=== PATIENT | female | born 1995 | race Caucasian/White ===

== ENCOUNTER 2016-11-06 16:21 | Inpatient (IN) | payer BC ==
[~2016-11-06] VITALS: Ht 167.6 cm; Wt 76.4 kg
[2016-11-20] MEDS ORDERED: PRENATAL1 TA7 PO (01:25)
[2016-11-20] MEDS ORDERED: MAGNESIUM ELEME30 MG PO (01:26)
[2016-11-20] MEDS ORDERED: OSCAL 500 TAB500 MG PO (01:26)
[2016-11-20] MEDS ORDERED: IRON325 M2 PO (01:26)
[2016-11-20] MEDS ORDERED: EPA FISH OIL1000 MG PO (01:27)
[2016-11-24] VITALS (26 sets, daily range): BP systolic 92–148; BP diastolic 53–79; PULSE 58–92; TEMP 97.2–98
[2016-11-24 09:06] LABS: BASO % 0.3 % (0.0-2.0); EOS # 0.1 (0.0-0.7); EOS % 0.9 % (0-4.0); GRAN # 5.2 (1.4-6.5); GRAN % 67.2 % (42.2-75.2); HEMOGLOBIN 12.3 g/dl (12.5-16.0); LYMPH # 1.8 (1.2-3.4); LYMPH % 23.6 % (20.0-51.0); MEAN CELL VOLUME 90 fl (80.0-100.0); MEAN CORPUSCULAR HEMOGLOBIN 32 pg (27.0-31.0); MEAN CORPUSCULAR HGB CONC 35 g/dl (33.0-37.0); MEAN PLATELET VOLUME 12.7 fl (7.4-10.4); MONO # 0.5 (0.1-0.6); PLATELET COUNT 101 K/mm3 (130-400); RED BLOOD COUNT 3.88 M/mm3 (4.10-5.30); REDCELL DISTRIBUTION WIDTH-CV 13.2 % (11.5-14.5); WHITE BLOOD COUNT 7.7 K/mm3 (4.8-10.8)
[2016-11-25 00:37] VITALS: BP 115/77; PULSE 77; TEMP 98.3
[2016-11-25 08:04] VITALS: BP 119/79; PULSE 78; TEMP 97.8
[2016-11-25] MEDS ORDERED: IBU800 M1 PO (11:38)
== END 2016-11-25 17:05 | disposition home or self-care (01) | DRG 775 ==
LOC: LDR 11-24 08:21 → OB 11-25 07:00 → EDSTATUS 11-26 08:18 → LDRO 11-26 16:21
PROVIDERS: Obstetrics & Gynecology
PROC: 10E0XZZ Delivery of Products of Conception, External Approach (ICD-10-PCS; principal; 2016-11-24)
PROC: 0HQ9XZZ Repair Perineum Skin, External Approach (ICD-10-PCS; 2016-11-24)
PROC: 3E033VJ Introduction of Other Hormone into Peripheral Vein, Percutaneous Approach (ICD-10-PCS; 2016-11-24)
DX: O48.0 Post-term pregnancy (principal); Z3A.40 40 weeks gestation of pregnancy; Z37.0 Single live birth
CPT/HCPCS: J2590; J7120

== ENCOUNTER 2016-11-20 00:43 | Outpatient (CLI) | payer BC ==
[~2016-11-20] VITALS: Ht 167.6 cm; Wt 76.4 kg
[2016-11-20 01:15] VITALS: BP 112/71; PULSE 89; TEMP 98.1
[2016-11-20] MEDS ORDERED: PRENATAL1 TA7 PO (01:25)
[2016-11-20] MEDS ORDERED: MAGNESIUM ELEME30 MG PO (01:26)
[2016-11-20] MEDS ORDERED: OSCAL 500 TAB500 MG PO (01:26)
[2016-11-20] MEDS ORDERED: IRON325 M2 PO (01:26)
[2016-11-20] MEDS ORDERED: EPA FISH OIL1000 MG PO (01:27)
== END 2016-11-20 03:10 | disposition home or self-care (01) ==
LOC: LDRO 00:43
DX: O62.9 Abnormality of forces of labor, unspecified (principal); Z3A.39 39 weeks gestation of pregnancy

== ENCOUNTER 2018-05-26 15:54 | Outpatient (CLI) | payer OTHER ==
[~2018-05-26] VITALS: Ht 167.6 cm; Wt 69.5 kg
[~2018-05-26 15:54] MED LIST: EPA FISH OIL1000 MG PO; IBU800 M1 PO; IRON325 M2 PO; MAGNESIUM ELEME30 MG PO; OSCAL 500 TAB500 MG PO; PRENATAL1 TA7 PO
[2018-05-26] MEDS ORDERED: DICLEGIS (16:29)
[2018-05-26 16:30] VITALS: BP 112/57; PULSE 69; TEMP 98
[2018-05-26 16:32] LABS: COLLECTION METHOD CLEAN CATCH
[2018-05-26 16:46] LABS: MUCOUS Present /lpf; PH 8 (5-8); SQUAMOUS EPITHELIAL 0-2 /hpf; URINE APPEARANCE Clear; URINE BACTERIA Rare /hpf; URINE BILIRUBIN Negative (NEGATIVE); URINE BLOOD 3+ (NEGATIVE); URINE COLOR Amber; URINE GLUCOSE Negative (NEGATIVE); URINE KETONE Negative (NEGATIVE); URINE LEUKOCYTE ESTERASE Negative (NEGATIVE); URINE NITRATE Negative (NEGATIVE); URINE PROTEIN(semi-quant) 1+ (NEGATIVE); URINE RBC 20-50 /hpf; URINE UROBILINOGEN Negative (NEGATIVE)
== END 2018-05-26 17:00 | disposition home or self-care (01) ==
LOC: LDRO 15:54 → LDR 16:15 → LDRO 17:00
PROVIDERS: Obstetrics & Gynecology
DX: O26.893 Other specified pregnancy related conditions, third trimester (principal); R31.9 Hematuria, unspecified; R25.2 Cramp and spasm; Z3A.28 28 weeks gestation of pregnancy
CPT/HCPCS: OP

== ENCOUNTER → 2018-06-18 | Outpatient (CLI) | payer OTHER ==
[~2018-06-18] MED LIST changes: +DICLEGIS
== END ==
LOC: SUN.DIA 06-15 16:48
DX: O24.419 Gestational diabetes mellitus in pregnancy, unspecified control (principal); Z3A.32 32 weeks gestation of pregnancy
CPT/HCPCS: G0108

== ENCOUNTER 2018-08-12 06:42 | Inpatient (IN) | payer OTHER ==
[~2018-08-12] VITALS: Ht 167.6 cm; Wt 76.4 kg
[2018-08-12] VITALS (44 sets, daily range): BP systolic 89–142; BP diastolic 51–81; PULSE 50–106; TEMP 97.7–98.7
--- NOTE | 2018-08-12 08:00 | NUR ---
Patient ambulatory to unit accompanied by spouse for scheduled pitocin induction of labor. Patient oriented to room and call light, gown on and resting in bed. Induction procedure reviewed. Patient states baby has been active, denies any vaginal bleeding or leaking of fluid. care and hx reviewed. Assessment completed. IV started in left wrist and labs collected from IV site. LR infusing without difficulty. Dr. Stanley at bedside and reviews FHR and contraction pattern. 0800: AROM with moderate amount of clear fluid noted. SVE by Dr. Stanley 1-/-3. Dr. Stanley states patient can have an epidural whenever she desires. Patients blood sugar checked using [facility] glucometer, 83 at 0815. Consents signed. Will continue with pitocin.
[2018-08-12] MEDS ORDERED: MAGNESIUM500 MG PO (08:08)
[2018-08-12] MEDS ORDERED: LEXAPRO 10MG10 MG PO (08:09)
[2018-08-12 08:41] LABS: BASO % 0.1 % (0.0-2.0); EOS # 0.1 (0.0-0.7); EOS % 0.9 % (0-4.0); GRAN # 4.4 (1.4-6.5); GRAN % 62.2 % (42.2-75.2); HEMOGLOBIN 11.6 g/dl (12.5-16.0); LYMPH % 28.8 % (20.0-51.0); MEAN CELL VOLUME 89 fl (80.0-100.0); MEAN CORPUSCULAR HEMOGLOBIN 30 pg (27.0-31.0); MEAN CORPUSCULAR HGB CONC 33 g/dl (33.0-37.0); MEAN PLATELET VOLUME 12.3 fl (7.4-10.4); MONO # 0.5 (0.1-0.6); MONO % 7.7 % (1.7-9.3); PLATELET COUNT 131 K/mm3 (130-400); RED BLOOD COUNT 3.93 M/mm3 (4.10-5.30); REDCELL DISTRIBUTION WIDTH-CV 12.3 % (11.5-14.5)
--- NOTE | 2018-08-12 09:00 | NUR ---
0900: Pitocin started at 2 mu/min per orders.
--- NOTE | 2018-08-12 09:43 | NUR ---
Patient requesting an epidural. SVE 1-2/50/-3 and light green tinged meconium fluid noted on peripad. Pads changed.
--- NOTE | 2018-08-12 09:58 | NUR ---
Tien Garcias CRNA notified of patient request for an epidural. In hopsital and on her way.
--- NOTE | 2018-08-12 10:08 | NUR ---
Patient off monitors and up to bathroom to void. Back to bed and sitting upright at side of bed for epidural placement. Tien Garcias CRNA in room and epidural procedure explained. Time out completed. 1019: Single shot given, no reaction to single shot. 1022: Epidural catheter placed and secured to patients back. 1027: Patient repositioned in bed, wedged left. See anesthesia records.
--- NOTE | 2018-08-12 14:05 | NUR ---
Patient breathing through contractions and states she is feeling contraction pain in her right lower abdominal area. Patient repositioned far right lateral and patient presses epidural bolus button. SVE /1. Will return to evaluate pain.
--- NOTE | 2018-08-12 14:30 | NUR ---
Tien Garcias CRNA called and report that patient still breathing through contractions and feeling pain on her right lower side. To room to dose epidural.
--- NOTE | 2018-08-12 15:12 | NUR ---
Patient states no relief from the epidural dose. Tien Garcias CRNA in room and will replace epidural catheter.
--- NOTE | 2018-08-12 15:15 | NUR ---
Patient repositioned to far right lateral. Tien Garcias CRNA at bedside to place epidural. 1522: Epidural catheter placed but falls out. 1526: Epidural catheter placed and secured to patients back. Epidural continuous pump infusing. See anesthesia records.
--- NOTE | 2018-08-12 16:00 | NUR ---
Patient comfortable with epidural but feeling pressure in her vagina. SVE 10//+2. Dr. Stanley called to hospital for delivery.
--- NOTE | 2018-08-12 16:15 | NUR ---
1610: Castillo catheter removed. 1612: Dr. Stanley in room for delivery. 1616: Patient pushes through one contraction and spontaneous vaginal delivery of infant head immediately followed by body. Infant nose and mouth suctioned by Dr. Stanley. Father of baby at bedside and cuts umbilical cord with assist from Dr. Stanley. placed skin to skin with mother where attended to by Alyse Mathias RN. Pitocin off after delivery of . 1618: Spontaneous and intact delivery of placenta. Fundus massaged, firm and down 2 from umbilicus. Second degree perineal laceration repaired. EBL 200ml. Patient repositioned in bed and ice pack on perineum. See labor and delivery summary, doctor dictation and anesthesia records.
--- NOTE | 2018-08-12 19:30 | NUR ---
1930 IV TO INT. EPID CATH REMOVED. UP TO BR WITH ASSIST AND VOIDED 800CC EASILY. PERICARE DONE. AMB TO 207 AND [facility].
[2018-08-13 08:35] VITALS: BP 113/79; PULSE 74; TEMP 97.6
--- NOTE | 2018-08-13 10:02 | NUR ---
Initial visit Patient thanked for offering congratulations for the of her son. thanked her for choosing [facility].
== END 2018-08-13 18:05 | disposition home or self-care (01) | DRG 807 ==
LOC: LDR 06:42 → OB 07:32
PROVIDERS: ADMIT Obstetrics & Gynecology
PROC: 10E0XZZ Delivery of Products of Conception, External Approach (ICD-10-PCS; principal; 2018-08-12)
PROC: 0KQM0ZZ Repair Perineum Muscle, Open Approach (ICD-10-PCS; 2018-08-12)
PROC: 10907ZC Drainage of Amniotic Fluid, Therapeutic from Products of Conception, Via Natural or Artificial Opening (ICD-10-PCS; 2018-08-12)
PROC: 3E033VJ Introduction of Other Hormone into Peripheral Vein, Percutaneous Approach (ICD-10-PCS; 2018-08-12)
DX: O24.420 Gestational diabetes mellitus in childbirth, diet controlled (principal); Z37.0 Single live birth; Z3A.39 39 weeks gestation of pregnancy; O70.1 Second degree perineal laceration during delivery; O77.0 Labor and delivery complicated by meconium in amniotic fluid; O99.344 Other mental disorders complicating childbirth; F41.8 Other specified anxiety disorders; Z87.891 Personal history of nicotine dependence
CPT/HCPCS: J2590; J2795; J7120

== ENCOUNTER 2021-01-19 08:11 | Outpatient (CLI) | payer OTHER ==
[~2021-01-19] VITALS: Ht 167.6 cm; Wt 82.7 kg
[~2021-01-19 08:11] MED LIST changes: +LEXAPRO 10MG10 MG PO; +MAGNESIUM500 MG PO
[2021-01-19 08:30] VITALS: BP 110/67; PULSE 90; TEMP 98.1
[2021-01-19 09:00] VITALS: BP 112/61; PULSE 80
--- NOTE | 2021-01-19 09:31 | NUR ---
0830 PATIENT HERE FOR VERSION. EFM ONN FHR 125 BABY VERY ACTIVE. ASSESSMENT COMPLETED. IV STARTED IN LEFT. TERB .[address] ORDER. NO CONTRACTIONS ON MONITOR OR FELT BY PATIENT.
[2021-01-19 09:39] VITALS: PULSE 78
--- NOTE | 2021-01-19 09:39 | NUR ---
[address] PABLO AT BEDSIDE. VERSION CONSENT SIGNED. US CONFIRM BREECH PRESENTATION BY DR MC. VERSION PROCEDURE PERFORMED BY DR MC AND SETH. ENCOURAGE PATIENT TO TAKE SLOW DEEP BREATHS THROUGH PROCEDURE. PATIENT AT BEDSIDE VERY SUPPORTIVE. VERSION SUCCESSFUL. US FOR VERTEX PLACEMENT CONFIRM.
--- NOTE | 2021-01-19 09:50 | NUR ---
0945 PATIENT RESTS IN BED. DENIES HAVING CONTRACTIONS OR PAIN.
== END 2021-01-19 10:14 | disposition home or self-care (01) ==
LOC: LDRO 08:11
DX: O32.8XX0 Maternal care for other malpresentation of fetus, not applicable or unspecified (principal); Z3A.36 36 weeks gestation of pregnancy
CPT/HCPCS: J3105

== ENCOUNTER 2021-01-23 21:54 | Outpatient (CLI) | payer OTHER ==
[~2021-01-23] VITALS: Ht 167.6 cm; Wt 81.8 kg
[2021-01-23 23:20] VITALS: BP 112/65; PULSE 93; TEMP 98
--- NOTE | 2021-01-24 00:31 | NUR ---
DR. LAURA NOTIFIED OF PATIENTS UNCHANGED CERVICAL EXAM AND REACTIVE STRIP. PATIENT WILL DISCHARGE HOME PER DR. LAURA'S ORDERS.
== END 2021-01-23 23:35 | disposition home or self-care (01) ==
LOC: LDRO 21:54 → LDR 22:19 → LDRO 23:35
DX: O62.9 Abnormality of forces of labor, unspecified (principal); Z3A.37 37 weeks gestation of pregnancy
CPT/HCPCS: OP

== ENCOUNTER 2021-01-26 20:26 | Outpatient (CLI) | payer OTHER ==
[~2021-01-26] VITALS: Ht 167.6 cm; Wt 82.7 kg
--- NOTE | 2021-01-26 20:40 | NUR ---
PT ARRIVES AMBULATORY TO UNIT WITH SPOUSE, C/O CONTRACTIONS Q4 MIN APART, PLACED ON TOCO/EFM WITH CATEGORY 1 STRIP UPON ASSESSMENT. DENIES LEAKING OF FLUID, AND REPORTS POSITIVE MOVEMENT. PT REPORTS HX OF "LONG LABORS" AND "I NEVER DILATE UNTIL I GET MY EPIDURAL." PT ALSO REPORTS BREECH PRESENTATION THIS WITH A SUCCESFUL VERSION ON 01/19/21. SVE 2/50/-2 UPON ARRIVAL, WILL REASSESS IN 1 HOUR TO MONITOR FOR CERVIAL CHANGE.
[2021-01-26 21:15] VITALS: BP 123/67; PULSE 97; TEMP 98.3
--- NOTE | 2021-01-26 22:22 | NUR ---
DISCHARGE INSTRUCTIONS REVIEWED AND UNDERSTOOD BY PATIENT. DENIES FURTHER QUESTIONS OF CONCERNS. AMBULATORY FROM UNIT WITH SPOUSE IN STABLE CONDITION.
== END 2021-01-26 22:22 ==
LOC: LDRO 20:26
DX: Z34.90 Encounter for supervision of normal pregnancy, unspecified, unspecified trimester (principal)

== ENCOUNTER 2021-01-31 16:25 | Outpatient (CLI) | payer OTHER ==
[~2021-01-31] VITALS: Ht 167.6 cm; Wt 82.7 kg
[2021-01-31 17:00] VITALS: BP 137/64; PULSE 115; TEMP 97.9
[2021-01-31 17:30] VITALS: PULSE 106
--- NOTE | 2021-01-31 18:20 | NUR ---
LABOR CHECK: 1630: PT. AMBULATORY TO L&D UNIT FOR C/O CTX Q2-3MIN APART. PT. ESCORTED TO LR4 AND CHANGED INTO GOWN. EFM/TOCO APPLIED AND VITAL SIGNS DONE. VITALS WNL (SEE REVIEW TAB) AND SVE 1-2/50/-3. ASSESSMENTS COMPLETED AND POC DISCUSSED. NO QUESTIONS AT THIS TIME.
--- NOTE | 2021-01-31 18:21 | NUR ---
DISCHARGE NOTE: 1814: PT. DRESSED AND SITTING ON BED. DISCUSSED DISCHARGE PAPERWORK AND NO QUESTIONS. PT. HAS APPT TOMORROW IN [facility] WITH DR. MC AND DISCUSSED KEEPING THAT TO REEVALUATE. PT. IS NOTED TO BE TEARFUL AND UNCOMFORTABLE WITH . DISCUSSED DIFFERENT WAYS TO HELP WITH THAT. PT. STATES UNDERSTANDING AND WAS AMBULATORY WITH SPOUSE AT SIDE. NO QUESTIONS. PT. DISCHARGED HOME W/ SPOUSE.
== END 2021-01-31 18:15 | disposition home or self-care (01) ==
LOC: LDRO 16:25 → LDR 16:30 → LDRO 18:15
DX: O62.9 Abnormality of forces of labor, unspecified (principal); Z3A.38 38 weeks gestation of pregnancy
CPT/HCPCS: OP

== ENCOUNTER 2021-02-13 02:46 | Outpatient (CLI) | payer OTHER ==
[~2021-02-13] VITALS: Ht 167.6 cm; Wt 81.8 kg
--- NOTE | 2021-02-13 03:00 | NUR ---
0300- PATIENT AMBULATORY TO THE UNIT WITH SISTER. PATIENT ORIENTATED TO ROOM AND CHANGED INTO CLEAN GOWN. THIS IS A DR. MC PATIENT WHO IS A AT 40.3 WHO WAS SEEN IN THE OFFICE TODAY AND HAD HER MEMBRANES SWEPT TODAY. PATIENT STATED SHE STARTED TO FEEL SOME MILD CONTRACTIONS ABOUT AN HOUR AFTER THE APPOINTMENT AND AROUND 2100 THAT STARTED TO GET MORE INTENSE. PATIENT TRIED TO TAKE TYLENOL 1000MG AND 2 BENADRYL TO SLEEP AND GET COMFORTABLE BUT IT DID NOT WORK ACCORDING TO HER. PATIENT REPORTS GFM, NO LOF, SOME SPOTTING AND CONTRACTIONS THAT ARE GETTING MORE INTENSE. 0305- EFM AND TOCO ON AND TRACING. VITALS TAKEN, ASSESSMENT COMPLETED. 0310- SVE 3/70/-2, AND PATIENT WAS 3/60/-2 IN THE OFFICE THIS AFTERNOON. DISCUSSED PLAN OF CARE. PATIENT VERBALIZED UNDERSTANDING WITH NO FURTHER QUESTIONS. CALL LIGHT WITHIN REACH.
[2021-02-13] MEDS ORDERED: TYLENOL 500MG500 MG PO (03:16)
[2021-02-13 04:00] VITALS: BP 118/78; PULSE 103; TEMP 97.8
[2021-02-13 05:00] VITALS: BP 115/72; PULSE 83
[2021-02-13 05:17] VITALS: BP 124/86; PULSE 82
--- NOTE | 2021-02-13 05:17 | NUR ---
0517- PATIENT OFF THE MONITORS TO WALK THE HALLS, PER PROVIDERS ORDERS. FHR HAS BEEN 115-120 WITH ACCELERATIONS.
[2021-02-13 06:27] VITALS: BP 117/68; PULSE 90
--- NOTE | 2021-02-13 07:16 | NUR ---
0635: WENT OVER DC INSTURCTIONS. PT. STATES UNDERSTANDING. PT. AMBULATORY AND IN STABLE CONDITION. PT. LEFT W/ AND SISTER. NO QUESTIONS AT THIS TIME
== END 2021-02-13 06:35 | disposition home or self-care (01) ==
LOC: LDRO 02:46
DX: O62.9 Abnormality of forces of labor, unspecified (principal); Z3A.40 40 weeks gestation of pregnancy

== ENCOUNTER → 2021-02-15 | Outpatient (CLI) | payer OTHER ==
[~2021-02-15] MED LIST changes: +MOTRIN 600600 MG/TAB PO; +TYLENOL 500MG500 MG PO
== END ==
LOC: ZCOL.LAB 10:31
DX: Z20.822 Contact with and (suspected) exposure to COVID-19 (principal)

== ENCOUNTER 2021-02-16 04:47 | Inpatient (IN) | payer OTHER ==
[~2021-02-16] VITALS: Ht 167.6 cm; Wt 81.8 kg
[2021-02-16] VITALS (11 sets, daily range): BP systolic 97–138; BP diastolic 50–86; PULSE 72–102; TEMP 97.9–98.6
[~2021-02-16 04:47] MED LIST changes: -MOTRIN 600600 MG/TAB PO
[2021-02-16 05:35] LABS: BASO % 0.1 % (0.0-2.0); EOS # 0.1 (0.0-0.7); EOS % 1.1 % (0-4.0); GRAN # 5.3 (1.4-6.5); GRAN % 66.5 % (42.2-75.2); HEMOGLOBIN 10.2 g/dl (12.5-16.0); LYMPH # 1.9 (1.2-3.4); LYMPH % 24.5 % (20.0-51.0); MEAN CELL VOLUME 85 fl (80.0-100.0); MEAN CORPUSCULAR HEMOGLOBIN 27 pg (27.0-31.0); MEAN CORPUSCULAR HGB CONC 32 g/dl (33.0-37.0); MONO # 0.6 (0.1-0.6); MONO % 7.2 % (1.7-9.3); PLATELET COUNT 144 K/mm3 (130-400); RED BLOOD COUNT 3.75 M/mm3 (4.10-5.30)
[2021-02-16 05:51] LABS: HEMATOCRIT 31.9 % (37.0-47.0)
--- NOTE | 2021-02-16 06:20 | NUR ---
Assumed care of patient. Rests in bed, alert. Spouse at bedside holding baby. Denies any discomfort or pain at this time.
--- NOTE | 2021-02-16 06:40 | NUR ---
PT TO LR#6 VIA W/C ACCOMPANIED BY AND ER STAFF. PT UNDRESSED AND IN TO BED, DONE AND PT IS 8-9/100/0. BULGY BAG OF WATER NOTED.
--- NOTE | 2021-02-16 06:48 | NUR ---
0532 OF FEMALE INFANT OVER [address] GILMORE, 0588 SPONTANOUS DELIVERY OF PLACENTA, PITOCIN INFUSING WIDE OPEN THEN TO INFUSING VIA PUMP @ 333ML/HR. FF WITH MASSAGE, ICE PACK AND PACKS APPLIED
--- NOTE | 2021-02-16 06:58 | NUR ---
0453 PT INTO GOWN AND INTO BED SVE DONE 8-100/0, CONTRACTIONS EVERY 2-3 MINUTES AND FIRM. PT BREATHING WELL WITH THEM. PT WOULD LIKE AN EPIDURAL, ADVISE PT i WILL TRY. 0500 INT PLACED IN THE LT WRIST WITH #[address] GRANGER NOTIFIED AT THE DESK OF PT'S STATUS.
--- NOTE | 2021-02-16 07:04 | NUR ---
0526 SVE DONE PT COMPLETE/ +2, DR GILMORE NOTIFIED AND AT BEDSIDE, 0528 SROM CLEAR FLUID, PT PUSHING WITH CONTRACTIONS, @ 0532.
--- NOTE | 2021-02-16 07:10 | NUR ---
Rests in bed, alert. baby. Denies any needs at this time.
--- NOTE | 2021-02-16 08:10 | NUR ---
Rests in bed, alert. Eating breakfast.
--- NOTE | 2021-02-16 09:00 | NUR ---
Ambulates to the bathroom. Voids moderate amount of clear yellow urine. Per-care done by patient. Ice pack on, gown changed. Ambulates to room 207. Tolerates well.
--- NOTE | 2021-02-16 10:15 | NUR ---
Extra strenth tylenol two given as ordered.
--- NOTE | 2021-02-16 16:15 | NUR ---
Rests in bed, alert. Tylenol 1000 mg given as ordered.
--- NOTE | 2021-02-17 08:00 | NUR ---
Rests in bed, alert. baby. Denies any needs at this time.
[2021-02-17 08:30] VITALS: BP 112/85; PULSE 86; TEMP 98
[2021-02-17] MEDS ORDERED: MOTRIN 600600 MG/TAB PO (10:21)
--- NOTE | 2021-02-17 12:00 | NUR ---
Rests in bed, alert. Discharge instructions given, verbalizes understanding.
== END 2021-02-17 12:10 | disposition home or self-care (01) | DRG 807 ==
LOC: LDRO 04:47 → LDR 05:12 → OB 09:00
PROVIDERS: Obstetrics & Gynecology; ADMIT Obstetrics & Gynecology
PROC: 10E0XZZ Delivery of Products of Conception, External Approach (ICD-10-PCS; principal; 2021-02-16)
PROC: 0KQM0ZZ Repair Perineum Muscle, Open Approach (ICD-10-PCS; 2021-02-16)
DX: O48.0 Post-term pregnancy (principal); Z37.0 Single live birth; O62.3 Precipitate labor; O99.344 Other mental disorders complicating childbirth; F41.8 Other specified anxiety disorders; O99.02 Anemia complicating childbirth; Z3A.40 40 weeks gestation of pregnancy
CPT/HCPCS: J2590; J7120